=== PATIENT | male | born 1940 | race Caucasian/White ===

== ENCOUNTER 2018-12-30 13:52 | Outpatient (CLI) | payer OTHER, MEDICARE ==
--- NOTE | 2018-12-30 15:04 | RAD ---
EXAM: CHEST TWO VIEWS: 12/30/18 HISTORY: Intermediate coronary syndrome, COPD exacerbation. COMPARISON: 11/23/18. FINDINGS: Postop midline sternotomy. Minimal costophrenic angle blunting of the right costophrenic angle. No co nfluent pneumonia, overt edema, or pleural effusion. The previously noted left pleural effusion has r esolved or markedly diminished. IMPRESSION: Small right pleural effusion. Postop midline sternotomy. Atherosclerosis of the aorta with ectasia. POS: [facility]
== END 2018-12-30 13:53 | disposition home or self-care (01) ==
LOC: RAD 13:52
PROVIDERS: ATTEND Thoracic Surgery (Cardiothoracic Vascular Surgery)
DX: I20.0 Unstable angina (principal); N18.4 Chronic kidney disease, stage 4 (severe); J90 Pleural effusion, not elsewhere classified; I70.0 Atherosclerosis of aorta; I77.819 Aortic ectasia, unspecified site; Z98.890 Other specified postprocedural states
CPT/HCPCS: 71046

== ENCOUNTER 2019-01-26 08:54 | Day surgery (SDC) | payer MEDICARE ==
[2019-01-26 09:13] LABS: PTT 26.7 SEC (22.9-36.1); Prothrombin Time 13.2 SEC (12.0-14.7)
[2019-01-26 09:40] LABS: Hemoglobin 9.6 g/dL (14.0-18.0); Mean Corpuscular Volume 96.8 fL (78.0-98.0); Mean Platelet Volume 6.1 fL (7.4-10.4); Platelet Count 237 thou/uL (130-400); RBC Distribution Width 15.7 % (11.5-14.5); Red Blood Cell (RBC) Count 3.01 mill/uL (4.70-6.10); White Blood Cell (WBC) Count 78.9 thou/uL (4.8-10.8)
[2019-01-26 09:41] LABS: Band 1 % (5-11); Eosinophils 2 % (0-10); Lymphocytes 90 % (21-51); MDiff Complete? YES; Neutrophil 7 % (42-75)
--- NOTE | 2019-01-26 12:10 | CT ---
CT-guided suprapubic bladder catheter placement INDICATION: History of prolonged urinary retention TECHNIQUE: Informed consent was obtained. The patient was placed supine on the CT table. Site overlyi ng the lower aspect of the abdomen was marked. 300 mL of sterile saline was administered through the patient's Castellanos catheter. There was distention of the bladder. Preprocedure CT was performed for guidance purposes. Site overlying the anterior superior aspect of the bladder was marked. The site was prepped and draped in the usual sterile fashion. Buffered 1% lidocaine was administered to the ov erlying subcutaneous tissues. The patient did undergo conscious sedation under guidance of the radiology nurse and received 1 mg of IV Versed and 75 mcg of IV fentanyl. Blunt dissection was perfor med through an incision of the lower midline abdomen utilizing a sterile set of hemostats. Following this a 14 [place] Castellanos catheter was guided through the abdominal wall and into the bladder utilizing a Bard suprapubic catheter placement kit.. A trocar method was utilized for the placement of the Castellanos catheter. The catheter was advanced into the bladder. There is spontaneous return of nor mal appearing urine with removal of the inner stylette. This was hooked to gravity bag. The 14 [place] Castellanos catheter was then sewn in place utilizing 0 silk. The site was then cleansed and bandage . The patient tolerated the procedure without difficulty. IMPRESSION: Successful CT placement of a suprapubic catheter. Transcribed Date/Time: 01/26/2019 1:02 PM
[2019-01-26 14:04] VITALS: BP 138/71; TEMP 97.8
[2019-01-26 14:42] VITALS: BMI 28.8
== END 2019-01-26 13:35 ==
LOC: CT 08:54
PROVIDERS: ATTEND Urology
PROC: 0T9B30Z Drainage of Bladder with Drainage Device, Percutaneous Approach (ICD-10-PCS; principal; 2019-01-26)
DX: N40.1 Benign prostatic hyperplasia with lower urinary tract symptoms (principal); R33.8 Other retention of urine; N13.8 Other obstructive and reflux uropathy; R35.0 Frequency of micturition; M19.90 Unspecified osteoarthritis, unspecified site; I25.10 Atherosclerotic heart disease of native coronary artery without angina pectoris; I12.9 Hypertensive chronic kidney disease with stage 1 through stage 4 chronic kidney disease, or unspecified chronic kidney disease; N18.9 Chronic kidney disease, unspecified; D63.1 Anemia in chronic kidney disease; F32.9 Major depressive disorder, single episode, unspecified; E78.5 Hyperlipidemia, unspecified; Z85.6 Personal history of leukemia; Z86.73 Personal history of transient ischemic attack (TIA), and cerebral infarction without residual deficits; Z87.891 Personal history of nicotine dependence; Z79.02 Long term (current) use of antithrombotics/antiplatelets; Z79.82 Long term (current) use of aspirin; Z79.899 Other long term (current) drug therapy; Z88.0 Allergy status to penicillin; Z95.1 Presence of aortocoronary bypass graft
CPT/HCPCS: 51102; 77002; 85025; 85610; 85730; C2627; 36415

== ENCOUNTER 2019-03-09 07:56 | Outpatient (CLI) | payer MEDICARE ==
[2019-03-09 16:13] LABS: PTT 25.2 SEC (22.9-36.1)
[2019-03-09 16:18] LABS: Hemoglobin 9.5 g/dL (14.0-18.0); Mean Corpuscular HGB CONC 32.1 g/dL (32.0-36.0); Mean Corpuscular Hemoglobin 31.6 pg (27.0-31.0); Mean Corpuscular Volume 98.6 fL (78.0-98.0); Mean Platelet Volume 6.3 fL (7.4-10.4); Platelet Count 263 thou/uL (130-400); RBC Distribution Width 14.9 % (11.5-14.5); Red Blood Cell (RBC) Count 3.01 mill/uL (4.70-6.10); White Blood Cell (WBC) Count 82.2 thou/uL (4.8-10.8)
[2019-03-09 16:30] LABS: Anion Gap 15 mmol/L (10-20); BUN (Urea Nitrogen) 19 mg/dL (8.4-25.7); Calc. Creatinine Clearance 0 mL/min (70-130); Calcium 8.6 mg/dL (7.8-10.44); Carbon Dioxide 23 mmol/L (23-31); Chloride 100 mmol/L (98-107); Estimated GFR-MDRD 47; Glucose 100 mg/dL (83-110); Potassium 4.8 mmol/L (3.5-5.1); Sodium 133 mmol/L (136-145)
== END 2019-03-09 07:57 | disposition home or self-care (01) ==
LOC: LABBT 07:56
PROVIDERS: ATTEND Urology
DX: Z01.818 Encounter for other preprocedural examination (principal); N40.1 Benign prostatic hyperplasia with lower urinary tract symptoms; R33.9 Retention of urine, unspecified; R35.0 Frequency of micturition; I25.119 Atherosclerotic heart disease of native coronary artery with unspecified angina pectoris; N18.9 Chronic kidney disease, unspecified; Z95.1 Presence of aortocoronary bypass graft; Z86.73 Personal history of transient ischemic attack (TIA), and cerebral infarction without residual deficits
CPT/HCPCS: 80048; 81001; 85027; 85610; 85730; 87077; 87086; 93005; 93010